=== PATIENT | male | born 1960 | race Caucasian/White ===

== ENCOUNTER 2019-08-10 16:50 | Inpatient (IN) ==
[2019-08-10] MEDS ORDERED: ZOFRAN IV ONE ×2 (17:44→20:07)
[2019-08-10] MEDS: NS 1,000 ML IV ONE ×2 (17:51→18:25)
[2019-08-10 17:53] LABS: BE -18.3 mmoll (-3.0-3.0); BLOOD TYPE ARTERIAL; HCO3-(ACT) 10.6 mmoll (20.0-26.0); O2(CT) 23.4 mL/dL (15.0-23.0); O2HB 95.6 % (95.0-99.0); PCO2(98.6) 25 mmHg (35-45); PO2(98.6) 102 mmHg (60-100); SAMPLE BLOOD; SAO2 99.2 % (95.0-100.0); THB 17.4 g/dL (11.5-17.4)
[2019-08-10 17:55] LABS: ALLEN TEST YES; MODALITY ROOM AIR
[2019-08-10 17:56] LABS: pH(98.6) 7.15 (7.35-7.45)
--- NOTE | 2019-08-10 17:59 | EKG Report ---
Test Performed on : 08/10/2019 5:54:44 PM Test Reason : emboli Blood Pressure : / mmHG Vent. Rate : 091 BPM Atrial Rate : 091 BPM P-R Int : 136 ms QRS Dur : 092 ms QT Int : 388 ms P-R-T Axes : 062 060 062 degrees QTc Int : 477 ms Normal sinus rhythm. Possible Left atrial enlargement Borderline ECG No previous ECGs available Unconfirmed Result
[2019-08-10 18:04] LABS: BASO# 0.05 X1000 (0.0-0.2); BASO% 0.2 % (0.0-0.8); EOS# 0.02 X1000 (0.0-0.7); EOS% 0.1 % (0.0-10.0); HEMATOCRIT 50.3 % (42.0-52.0); HEMOGLOBIN 16.4 g/dL (14.0-18.0); IMM GRAN# 0.13 X1000 (0.0-0.04); IMM GRAN% 0.6 % (0.0-0.5); LYMPH# 1.37 X1000 (1.2-3.4); LYMPH% 6.3 % (20.5-51.1); MCH 29.4 PG (27-31); MCHC 32.6 g/dL (33-37); MCV 90.1 FL (81-99); MONO# 0.82 X1000 (0.11-0.59); MONO% 3.8 % (1.7-9.3); MPV 10.8 FL (7.4-10.4); NEUT# 19.25 X1000 (1.4-6.5); PLT 574 X1000 (130-400); RBC 5.58 XMIL (4.7-6.1); RDW 12.6 % (11.5-14.5); WBC 21.64 X1000 (4.8-10.8)
[2019-08-10 18:05] LABS: ESTIMATED GFR > 60
[2019-08-10] MEDS ORDERED: HUMALOG IV ONE (18:13)
[2019-08-10] MEDS ORDERED: NS 1,000 ML IV ONE ×2 (18:13→18:15)
[2019-08-10] MEDS ORDERED: HUMULIN R 100 UNIT in NS 100 ML IV SCH (18:15)
[2019-08-10] MEDS ORDERED: NS 1,000 ML IV SCH (18:15)
[2019-08-10] MEDS ORDERED: D50W SYRINGE IV PRN ×2 (18:15)
[2019-08-10 18:32] LABS: PHOSPHORUS 6.2 mg/dL (2.7-4.5)
[2019-08-10 18:35] LABS: AGAP 35; ALBUMIN 5.1 g/dL (3.5-5.0); ALKALINE PHOSPHATASE 134 U/L (32-122); AMYLASE 66 U/L (20-200); BUN 27 mg/dL (8-22); CALCIUM 10.2 mg/dL (8.8-10.2); CHLORIDE 88 mmol/L (98-107); CK PROFILE 65 U/L (24-204); COSMO 292; CREATININE 1.1 mg/dL (0.7-1.2); GOT 25 U/L (10-34); GPT 41 U/L (10-44); POTASSIUM 5.5 mmol/L (3.5-5.1); SODIUM 132 mmol/L (136-145); TCO2 9 mmol/L (25-35); TOTAL PROTEIN 8.6 g/dL (6.3-8.3)
[2019-08-10 18:36] LABS: ACETONE SERUM SMALL (NEGATIVE); GLUCOSE 494 mg/dL (70-104)
[2019-08-10] MEDS ORDERED: HUMALOG (PARKWAY) ONE (18:36)
[2019-08-10] MEDS ORDERED: G.I. COCKTAIL PO ONE (18:45)
--- NOTE | 2019-08-10 18:49 | ED EKG INTERP ---
This chart was entered by Jolie Kiser Scribe, acting as scribe for Isiah Sullivan MD. EKG Interpretation - EKG Time of EKG reading by physician:: 17:54 EKG Read and Signed by:: Isiah Sullivan EKG Interpretation (*Must complete 3 of following elements*): Normal (borderline) Rate: 91 (possible LAE ) Rhythm: NSR [place]: normal QRS: normal [place] Interval: normal ST Wave: normal Attestation - Physician/ JOSE LUIS Attestation Patient care was provided by Advanced Practice Provider:: No The physician spent face to face time with patient:: Yes Advanced Practice Provider documentation review:: Supervising physician onsite and consulted in the evaluation and care of this patient. The physician did have a face to face encounter with the patient. This chart was documented by the indicated scribe, (Jolie Kiser Scribe) and accurately reflects the services I performed and decisions made by me, Iisah Sullivan MD, as attested by the provider's signature.
--- NOTE | 2019-08-10 18:50 | PROVIDER DOCUMENTATION ---
This chart was entered by Abby Montiel Scribe, acting as scribe for Isiah Sullivan MD. HPI-General Adult - General Source: patient, family (mother) - History of Present Illness -Gen Adult Nature of Presenting Problems: Pt is a 58 yowm brought into the ED by his mother with c/o vomiting 8 - 10 xs today, weakness, and racing heart rate. Pt's mother states he ate yesterday but has not kept anything down today. Pt states he has a burning sensation in his u pper abdomen. Pt is alert, mildly distressed, and pale in appearance. Location of Pain/Injury: reports: abdomen Pain Radiation: reports: no radiation Quality of Pain: reports: aching, burning Severity: reports: moderate Onset/Duration: reports: abrupt, 24 hours ago Timing: reports: still present, getting worse Context/Activities at Onset: reports: light activity Associated Symptoms: reports: muscle aches, nausea, vomiting, weakness. denies: constipation, diarrhea, fever/chills, syncope Similar Symptoms Previously?: No Recently seen or treated by another doctor?: No <Isiah Sullivna - Last Filed: 08/10/19 18:49> <Fred Carreon - Last Filed: 08/10/19 20:10> - General Chief Complaint: DKA ALERT Stated Complaint: VOMITTING Time Seen by Provider: 08/10/19 17:24 Allergies/Adverse Reactions: Patient Allergies Allergy/AdvReac Type Severity Reaction Status Date / Time No Known Allergies Allergy Verified 08/10/19 17:32 Home Medications: Home Medication List Medication Instructions Recorded Confirmed Last Taken Type Cephalexin [Keflex] 500 mg PO 4XDAY #20 cap 09/12/18 Unknown Rx Citalopram [Celexa] 10 mg PO DAILY 09/12/18 09/12/18 Unknown History Esomeprazole Magnesium 40 mg PO DAILY 09/12/18 09/12/18 Unknown History Ibuprofen [Motrin] 600 mg PO Q6-8H PRN PRN #30 tab 09/12/18 Unknown Rx Insulin Novolog 70/30 [Novolog Mix 20 dose INJ DIRECTED 09/12/18 01/02/19 01/02/19 08:00 History 70/30] Lisinopril 5 mg PO DAILY 09/12/18 09/12/18 Unknown History Pioglitazone HCl/Metformin HCl 1 each PO DIRECTED 09/12/18 09/12/18 Unknown History [Pioglitazone-Metformin 15-500] Cyclobenzaprine [Flexeril] 10 mg PO TID #20 tab 01/02/19 Unknown Rx Gabapentin [Neurontin] 300 mg PO BID #40 cap 01/02/19 Unknown Rx Meloxicam [Mobic] 15 mg PO DAILY #20 tab 01/02/19 Unknown Rx Review of Systems - Adult - REVIEW OF SYSTEMS - ADULT Constitutional: denies: chills, fever Eyes: reports: no symptoms reported Ears, Nose, Mouth & Throat: reports: no symptoms reported Cardiovascular: denies: chest pain, syncope Respiratory: reports: shortness of breath. denies: cough Gastrointestinal: reports: abdominal pain, nausea, poor appetite, vomiting. denies: constipation, diarrhea Genitourinary: reports: no symptoms reported Musculoskeletal: reports: see HPI, muscle weakness Integumentary: reports: no symptoms reported Neurological: denies: dizziness/vertigo, headache/migraines, syncope Psychiatric: reports: no symptoms reported Endocrine: reports: no symptoms reported Hematologic/Lymphatic: reports: no symptoms reported Allergic/Immunologic: reports: no symptoms reported All Other Systems: Reviewed and Negative <Isiah Sullivna - Last Filed: 08/10/19 18:49> Past History - Adult - PAST MEDICAL HISTORY-ADULT Review of Records: reports: Old Records Reviewed, Nursing Assessment Review, Medications Reviewed, Social history reviewed & non-contributory. Major Childhood Illnesses: reports: denies history Cardiovascular: reports: HTN Respiratory: reports: denies history Gastrointestinal: reports: denies history Obstetrical/Gynecological: reports: denies history Genitourinary: reports: denies history Musculoskeletal: reports: denies history Neurological: reports: denies history Endocrine/Immune: reports: Diabetes Other Conditions: reports: denies history - PRIOR SURGERIES/PROCEDURES Surgical/Procedure History: reports: reviewed, not pertinent - IMMUNIZATION STATUS Childhood Immunizations: See Nurse Assessment Flu Vaccine: See Nurse Assessment - FAMILY HISTORY Family History: reviewed, not pertinent - SOCIAL HISTORY Smoking: quit greater than 1 year Substance Use: alcohol Alcohol Use Frequency: occasionally Living Situation: family (mother) <Isiah Sullivan - Last Filed: 08/10/19 18:49> Physical Exam-General - PHYSICAL EXAM-ADULT Initial Vital Signs Reviewed: Yes (HR 100) - CONSTITUTIONAL General Appearance: alert, mild distress, anxious - EYES Eyes: PERRL/EOMI, pink conjunctivae - HEAD, EARS, NOSE, MOUTH & THROAT HENMT: normocephalic/atraumatic, moist mucous membranes, other (tongue coated) - NECK Neck: non-tender, full range of motion, supple, normal inspection - RESPIRATORY Respiratory: chest non-tender, lungs clear, normal breath sounds, no pleuratic chest pain, no respiratory distress, no accessory muscle use - CARDIOVASCULAR Cardiovascular: normal peripheral pulses, no edema, no gallop, no JVD, no murmur , tachycardia, other (tachypneic) - GASTROINTESTINAL (ABDOMEN) Abdominal Exam: normal bowel sounds, non tender, soft - LYMPHATIC Lymphatic: no adenopathy - MUSCULOSKELETAL Back Exam: normal inspection, no CVA tenderness, no vertebral tenderness Extremity: normal range of motion, non-tender, normal gait, normal inspection, no pedal edema, no calf tenderness - SKIN Integumentary: normal turgor, warm/dry, pallor - PSYCHIATRIC Psych/Mental Status: normal thought content, normal thought process, oriented x 3, anxious <Isiah Sullivan - Last Filed: 08/10/19 18:49> Progress - PLAN OF CARE/RESULTS Progress/Plan/Lab Results: Vital Signs - 8 hr 08/10/19 17:10 Temperature 98 F Pulse Rate 100 H Respiratory Rate 18 Blood Pressure 160/87 O2 Sat by Pulse Oximetry 98 Orders Category Date Time Status FSBS [Finger Stick Blood Sugar (ED)] DIRECTED Care 08/10/19 17:15 Active 0.9% Sodium Chloride Inj [Ns] 1,000 ml Med 08/10/19 17:35 Active IV 999 mls/hr Result Diagrams: 08/10/19 17:30 08/10/19 17:30 <Isiah Sullivan - Last Filed: 08/10/19 18:49> - PLAN OF CARE/RESULTS Progress/Plan/Lab Results: Vital Signs - 8 hr 08/10/19 17:10 08/10/19 19:15 08/10/19 20:02 Temperature 98 F Pulse Rate 100 H 107 H 94 H Respiratory Rate 18 16 17 Blood Pressure 160/87 194/86 O2 Sat by Pulse Oximetry 98 99 96 Laboratory Results - last 24 hr 08/10/19 08/10/19 08/10/19 17:30 17:30 17:30 WBC 21.64 H RBC 5.58 Hgb 16.4 Hct 50.3 MCV 90.1 MCH 29.4 MCHC 32.6 L RDW Std Deviation 12.6 Plt Count 574 H MPV 10.8 H Immature Gran % (Auto) 0.6 H Neut % (Auto) 89.0 H Lymph % (Auto) 6.3 L [place] % (Auto) 3.8 Eos % (Auto) 0.1 Baso % (Auto) 0.2 Immature Gran # (Auto) 0.13 H Neut # (Auto) 19.25 H Lymph # (Auto) 1.37 [place] # (Auto) 0.82 H Eos # (Auto) 0.02 Baso # (Auto) 0.05 Segmented Neutrophils Not Reportable Specimen Type Sample Site pH pCO2 pO2 HCO3 Base Excess Oxyhemoglobin ABG O2 Sat (Calculated) ABG O2 Saturation ABG Carboxyhemoglobin ABG Methemoglobin [place] Test A-a O2 Difference Total Hemoglobin Lactate Blood Gas Modality FiO2 % Sodium 132 L Potassium 5.5 H Chloride 88 L Carbon Dioxide 9 L Anion Gap 35 BUN 27 H Creatinine 1.1 Estimated GFR/1.73 m2 > 60 BUN/Creatinine Ratio 25 Glucose 494 H* POC Glucose Calculated Osmolality 292 Calcium 10.2 Phosphorus Magnesium Total Bilirubin 0.90 AST 25 ALT 41 Alkaline Phosphatase 134 H Creatine Kinase 65 Troponin T High Sens Total Protein 8.6 H Albumin 5.1 H Globulin 4.0 Albumin/Globulin Ratio 1.0 Amylase 66 Lipase 18 Urine Source Urine Color Urine Turbidity Urine pH Ur Specific [place] Urine Protein Ur Glucose (Stick) Ur Ketones (Stick) Urine Blood Urine Nitrite Urine Bilirubin Urobilinogen Dipstick Urine Leukocytes Urine WBC (Auto) Urine RBC (Auto) U Epithel Cells (Auto) Urine Bacteria (Auto) Urine Opiates Screen Ur Oxycodone Screen Urine Methadone Screen U Propoxyphene Qual Ur Barbituates Screen Ur Tricyclics Screen Ur Phencyclidine Scrn Ur Amphetamines Screen U Methamphetamines Scrn U Benzodiazepines Scrn Urine Cocaine Screen U Cannabinoids Screen Acetone Level SMALL A 08/10/19 08/10/19 08/10/19 17:30 17:30 17:40 WBC RBC Hgb Hct MCV MCH MCHC RDW Std Deviation Plt Count MPV Immature Gran % (Auto) Neut % (Auto) Lymph % (Auto) [place] % (Auto) Eos % (Auto) Baso % (Auto) Immature Gran # (Auto) Neut # (Auto) Lymph # (Auto) [place] # (Auto) Eos # (Auto) Baso # (Auto) Segmented Neutrophils Specimen Type ARTERIAL Sample Site R RADIAL pH 7.15 L* pCO2 25 L pO2 102 H HCO3 10.6 L Base Excess -18.3 L Oxyhemoglobin 95.6 ABG O2 Sat (Calculated) 23.4 H ABG O2 Saturation 99.2 ABG Carboxyhemoglobin 2.50 ABG Methemoglobin 1.0 [place] Test YES A-a O2 Difference 16.0 Total Hemoglobin 17.4 Lactate 2.80 H Blood Gas Modality ROOM AIR FiO2 % 21.0 Sodium Potassium Chloride Carbon Dioxide Anion Gap BUN Creatinine Estimated GFR/1.73 m2 BUN/Creatinine Ratio Glucose POC Glucose Calculated Osmolality Calcium Phosphorus 6.2 H Magnesium 2.0 Total Bilirubin AST ALT Alkaline Phosphatase Creatine Kinase Troponin T High Sens 10 Total Protein Albumin Globulin Albumin/Globulin Ratio Amylase Lipase Urine Source Urine Color Urine Turbidity Urine pH Ur Specific [place] Urine Protein Ur Glucose (Stick) Ur Ketones (Stick) Urine Blood Urine Nitrite Urine Bilirubin Urobilinogen Dipstick Urine Leukocytes Urine WBC (Auto) Urine RBC (Auto) U Epithel Cells (Auto) Urine Bacteria (Auto) Urine Opiates Screen Ur Oxycodone Screen Urine Methadone Screen U Propoxyphene Qual Ur Barbituates Screen Ur Tricyclics Screen Ur Phencyclidine Scrn Ur Amphetamines Screen U Methamphetamines Scrn U Benzodiazepines Scrn Urine Cocaine Screen U Cannabinoids Screen Acetone Level 08/10/19 08/10/19 08/10/19 19:04 19:24 19:24 WBC RBC Hgb Hct MCV MCH MCHC RDW Std Deviation Plt Count MPV Immature Gran % (Auto) Neut % (Auto) Lymph % (Auto) [place] % (Auto) Eos % (Auto) Baso % (Auto) Immature Gran # (Auto) Neut # (Auto) Lymph # (Auto) [place] # (Auto) Eos # (Auto) Baso # (Auto) Segmented Neutrophils Specimen Type Sample Site pH pCO2 pO2 HCO3 Base Excess Oxyhemoglobin ABG O2 Sat (Calculated) ABG O2 Saturation ABG Carboxyhemoglobin ABG Methemoglobin [place] Test A-a O2 Difference Total Hemoglobin Lactate Blood Gas Modality FiO2 % Sodium Potassium Chloride Carbon Dioxide Anion Gap BUN Creatinine Estimated GFR/1.73 m2 BUN/Creatinine Ratio Glucose POC Glucose 320 H Calculated Osmolality Calcium Phosphorus Magnesium Total Bilirubin AST ALT Alkaline Phosphatase Creatine Kinase Troponin T High Sens Total Protein Albumin Globulin Albumin/Globulin Ratio Amylase Lipase Urine Source CLEAN CATCH Urine Color YELLOW Urine Turbidity CLEAR Urine pH 5.5 Ur Specific [place] 1.023 Urine Protein 30 A Ur Glucose (Stick) >1000 A Ur Ketones (Stick) >150 A Urine Blood NEGATIVE Urine Nitrite NEGATIVE Urine Bilirubin NEGATIVE Urobilinogen Dipstick NORMAL Urine Leukocytes NEGATIVE Urine WBC (Auto) <10 Urine RBC (Auto) <10 U Epithel Cells (Auto) <10 Urine Bacteria (Auto) NEGATIVE Urine Opiates Screen NONE DETECTED Ur Oxycodone Screen NONE DETECTED Urine Methadone Screen NONE DETECTED U Propoxyphene Qual NONE DETECTED Ur Barbituates Screen NONE DETECTED Ur Tricyclics Screen NONE DETECTED Ur Phencyclidine Scrn NONE DETECTED Ur Amphetamines Screen NONE DETECTED U Methamphetamines Scrn NONE DETECTED U Benzodiazepines Scrn NONE DETECTED Urine Cocaine Screen NONE DETECTED U Cannabinoids Screen NONE DETECTED Acetone Level Orders Category Date Time Status Cardiac Monitoring DIRECTED Care 08/10/19 18:15 Active FSBS [Finger Stick Blood Sugar (ED)] DIRECTED Care 08/10/19 17:15 Active FSBS/Accucheck Result Q15M Care 08/10/19 18:18 Active FSBS/Accucheck Result Q1H Care 08/10/19 18:15 Active Hypoglycemia/FSBS <50 or Range of 50-70 PRN Care 08/10/19 18:18 Active Notify Physician ORDERED Care 08/10/19 18:18 Active Saline Loc DIRECTED Care 08/10/19 18:18 Active Saline Loc NOW Care 08/10/19 18:15 Active Vital Signs Order Q1H Care 08/10/19 18:15 Active ABG [RESP] Routine Lab 08/10/19 17:40 Completed ACETONE SERUM [CHEM] Stat Lab 08/10/19 17:30 Completed AMYLASE [CHEM] Stat Lab 08/10/19 17:30 Completed CBC WITH DIFF [HEME] Stat Lab 08/10/19 17:30 Completed CK PROFILE [SP CHEM] Stat Lab 08/10/19 17:30 Completed COMPREHENSIVE METABOLIC PANEL [CHEM] Stat Lab 08/10/19 17:30 Completed LIPASE [CHEM] Stat Lab 08/10/19 17:30 Completed MAGNESIUM [CHEM] Stat Lab 08/10/19 17:30 Completed PHOSPHORUS [CHEM] Stat Lab 08/10/19 17:30 Completed TROPONIN T HIGH SENSITIVITY Stat Lab 08/10/19 17:30 Completed UA [URINALYSIS W/POSS RFLX CULT] [URINALYSIS] Stat Lab 08/10/19 19:24 Completed URINE DRUG SCREEN PL Stat Lab 08/10/19 19:24 Completed 0.9% Sodium Chloride Inj [Ns] 1,000 ml Med 08/10/19 18:15 Discontinued IV 500 mls/hr 0.9% Sodium Chloride Inj [Ns] 1,000 ml Med 08/10/19 17:35 Discontinued IV 999 mls/hr 0.9% Sodium Chloride Inj [Ns] 1,000 ml Med 08/10/19 18:13 Discontinued IV 999 mls/hr 0.9% Sodium Chloride Inj [Ns] 1,000 ml Med 08/10/19 18:15 Discontinued IV 999 mls/hr 0.9% Sodium Chloride Inj [Ns] 100 ml Med 08/10/19 18:15 Discontinued Insulin Human Regular [Humulin R] 100 unit IV Per Protocol mls/hr 0.9% Sodium Chloride Inj [Ns] 100 ml Med 08/10/19 19:21 Discontinued .ROUTE As directed Dextrose 50% Syringe [D50w Syringe] Med 08/10/19 18:15 Discontinued 25 ml IV PRN PRN Dextrose 50% Syringe [D50w Syringe] Med 08/10/19 18:15 Discontinued 50 ml IV PRN PRN Insulin Lispro ([place]) [Humalog ([place])] Med 08/10/19 18:36 Discontinued 10 units .ROUTE .STK-MED ONE Insulin Lispro [Humalog] Med 08/10/19 18:13 Discontinued 10 units IV NOW ONE Lido/[place] Alk/Al&mg Hydrox [G.i. Cocktail] Med 08/10/19 18:45 Discontinued 30 ml PO NOW ONE Morphine Med 08/10/19 20:07 Discontinued 2 mg IV NOW ONE Ondansetron [Zofran] Med 08/10/19 20:07 Discontinued 4 mg IV NOW ONE Ondansetron [Zofran] Med 08/10/19 17:44 Discontinued 4 mg IV STAT ONE EKG [EKG] Routine Ther 08/10/19 17:45 Draft Transfer/Admit Order [TRANSFER] Routine Transfer 08/10/19 19:19 Completed Result Diagrams: 08/10/19 17:30 08/10/19 17:30 - REASSESSMENT Reassessment #1 Time Reassessed: 20:08 Status: improving (This patient was checked out to me at shift change by Dr. Sullivan, awaiting labs, however, he already spoke with Dr. Liriano who agreed to admit the patient and [facility] [place] [facility] Patient requested some pain meds for abdominal pain, so I ordered morphine/zofran) <Fred Carreon - Last Filed: 08/10/19 20:10> Departure <Isiah Sullivan - Last Filed: 08/10/19 18:49> - Departure Date of Disposition Decision: 08/10/19 Time of Disposition Decision: 20:09 Certified Medical Emergency: Emergent - Critical Care Note This patient required my direct & personal management of CC.: Yes Total Time (mins): 35 Critical Care Statement: This patient required my direct personal management to treat or rule out processes, the absence of which, could potentiallly result in sudden, clinically significant life or limb threatening deterioration. <Fred Carreon - Last Filed: 08/10/19 20:10> - Departure DIAGNOSIS: Diabetic ketoacidosis associated with type 2 diabetes mellitus Qualifiers: Diabetes mellitus complication detail: without coma Qualified Code(s): E11.10 - Type 2 diabetes mellitus with ketoacidosis without coma Abdominal pain Qualifiers: Abdominal location: generalized Qualified Code(s): R10.84 - Generalized abdominal pain Disposition: ADMITTED INPATIENT 09 Condition: Critical Referrals and Follow-Ups: None,PCP [Primary Care Provider] - Attestation - Physician/ JOSE LUIS Attestation Patient care was provided by Advanced Practice Provider:: No The physician spent face to face time with patient:: Yes Advanced Practice Provider documentation review:: Supervising physician onsite and consulted in the evaluation and care of this patient. The physician did have a face to face encounter with the patient. <Isiah Sullivan - Last Filed: 08/10/19 18:49> - Physician/ JOSE LUIS Attestation Patient care was provided by Advanced Practice Provider:: No The physician spent face to face time with patient:: Yes Advanced Practice Provider documentation review:: Supervising physician onsite and consulted in the evaluation and care of this patient. The physician did have a face to face encounter with the patient. <Fred Carreon - Last Filed: 08/10/19 20:10> This chart was documented by the indicated scribe, (Abby Montiel, Scribe) and accurately reflects the services I performed and decisions made by me, Isiah Sullivan MD, as attested by the provider's signature.
[2019-08-10] MEDS ORDERED: NS 100 ML ONE (19:21)
[2019-08-10 19:28] LABS: URINE SOURCE CLEAN CATCH
[2019-08-10 19:30] LABS: BILIRUBIN URINE NEGATIVE (NEGATIVE); BLOOD URINE NEGATIVE (NEGATIVE); COLOR YELLOW; GLUCOSE URINE >1000 mg/dL (NEGATIVE); KETONE URINE >150 mg/dL (NEGATIVE); LEUKOCYTES URINE NEGATIVE (NEGATIVE); NITRITE URINE NEGATIVE (NEGATIVE); PH URINE 5.5; PROTEIN URINE 30 mg/dL (NEGATIVE); SP GRAVITY URINE 1.023; TURBIDITY URINE CLEAR (CLEAR); UROBILINOGEN URINE NORMAL (NORMAL)
[2019-08-10 19:32] LABS: UR EPITHELIAL CELLS <10 /HPF (<10); URINE BACTERIA NEGATIVE /HPF; URINE RBC <10 /HPF (<10); URINE WBC <10 /HPF (<10)
[2019-08-10 19:47] LABS: UR AMPHETAMINES QUAL NONE DETECTED (NONE DETECT); UR BARBITUATES QUAL NONE DETECTED (NONE DETECT); UR BENZODIAZEPIN QUAL NONE DETECTED (NONE DETECT); UR CANNABINOIDS QUAL NONE DETECTED (NONE DETECT); UR COCAINE QUAL NONE DETECTED (NONE DETECT); UR METHADONE QUAL NONE DETECTED (NONE DETECT); UR METHAMPHETAMINE QUAL NONE DETECTED (NONE DETECT); UR OPIATES QUAL NONE DETECTED (NONE DETECT); UR OXYCODONE QUAL NONE DETECTED (NONE DETECT); UR PCP QUAL NONE DETECTED (NONE DETECT); UR PROPOXYPHENE QUAL NONE DETECTED (NONE DETECT); UR TCA QUAL NONE DETECTED (NONE DETECT)
[2019-08-10] MEDS ORDERED: MORPHINE IV ONE (20:07)
[2019-08-11] MEDS ORDERED: D50W SYRINGE IV PRN ×4 (00:37→04:28)
[2019-08-11] MEDS ORDERED: POTASSIUM CHLORIDE 40 MEQ in D5 NS 1,000 ML IV PRN (00:44)
[2019-08-11] MEDS ORDERED: NS + KCL 20 MEQ 1,000 ML IV SCH ×2 (00:45→03:00)
[2019-08-11] MEDS ORDERED: HUMULIN R 100 UNIT in NS 100 ML IV SCH ×6 (00:45→04:30)
[2019-08-11] MEDS ORDERED: ZOSYN 3.375 GM in NS 50 ML IV SCH ×2 (01:00→07:00)
[2019-08-11] MEDS ORDERED: VANCOMYCIN IV PER PHARMACY MISC SCH (01:00)
[2019-08-11 02:15] LABS: AGAP 16; BUN 23 mg/dL (8-22); CALCIUM 8.9 mg/dL (8.8-10.2); CHLORIDE 102 mmol/L (98-107); COSMO 282; CREATININE 0.9 mg/dL (0.7-1.2); ESTIMATED GFR > 60; GLUCOSE 252 mg/dL (70-104); PHOSPHORUS 2.4 mg/dL (2.7-4.5); POTASSIUM 5.2 mmol/L (3.5-5.1); SODIUM 135 mmol/L (136-145); TCO2 17 mmol/L (25-35)
[2019-08-11] MEDS ORDERED: VANCOMYCIN 1 GM/NS 1 GM/250 ML IVPB IV SCH (03:00)
[2019-08-11] MEDS ORDERED: VANCOMYCIN 2,400 MG in NS 500 ML IV ONE (04:00)
[2019-08-11] MEDS ORDERED: MAGNESIUM SULFATE 2 GM/S.W.I. 2 GM/50 ML IVPB IV PRN (04:28)
[2019-08-11] MEDS ORDERED: D5 NS 1,000 ML IV PRN (04:28)
[2019-08-11] MEDS ORDERED: SODIUM PHOSPHATE 30 MMOL in D5W 250 ML IV PRN (04:28)
[2019-08-11] MEDS ORDERED: POTASSIUM CHLORIDE 20% LIQUID PO PRN (04:28)
[2019-08-11] MEDS ORDERED: POTASSIUM CHLORIDE 40 MEQ/SWI 40 MEQ/100 ML IVPB IV PRN (04:28)
[2019-08-11] MEDS ORDERED: POTASSIUM CHLORIDE 20 MEQ/SWI 20 MEQ/100 ML IVPB IV PRN (04:28)
[2019-08-11] MEDS ORDERED: NS 1,000 ML IV SCH (04:30)
[2019-08-11 04:55] LABS: ALLEN TEST YES; BE -6.3 mmoll (-3.0-3.0); BLOOD TYPE ARTERIAL; METHB 1.4 % (0.0-1.5); O2(CT) 21.1 mL/dL (15.0-23.0); PCO2(98.6) 33 mmHg (35-45); PO2(98.6) 135 mmHg (60-100); SAMPLE BLOOD; SAO2 99.4 % (95.0-100.0); THB 15.5 g/dL (11.5-17.4); pH(98.6) 7.35 (7.35-7.45)
[2019-08-11 04:56] LABS: MODALITY ROOM AIR
[2019-08-11 05:47] LABS: AGAP 13; BUN 22 mg/dL (8-22); CALCIUM 8.9 mg/dL (8.8-10.2); CHLORIDE 105 mmol/L (98-107); COSMO 278; ESTIMATED GFR > 60; GLUCOSE 213 mg/dL (70-104); PHOSPHORUS 1.9 mg/dL (2.7-4.5); POTASSIUM 4.4 mmol/L (3.5-5.1); SODIUM 134 mmol/L (136-145); TCO2 16 mmol/L (25-35)
--- NOTE | 2019-08-11 06:18 | HISTORY AND PHYSICAL ---
CHIEF COMPLAINT: The patient's chief complaint is that of abdominal discomfort with nausea and vomiting. HISTORY OF PRESENT ILLNESS: Mr. Yogesh Cox is a 58-year-old male who has a history of diabetes mellitus, and presents to the hospital because of a burning discomfort which he noticed in his epigastric area along with nausea and also vomiting. The patient denies any diarrhea or constipation. On presenting to the emergency room, he was found to have raised blood sugar of 494. CO2 level of 9, anion gap of 35, and potassium of 5.5. His pH was 7.15. The patient was noted to have a small amount of acetone. The patient was diagnosed as having diabetic ketoacidosis, and started on intravenous fluids as well as intravenous insulin. The patient initially presented to [facility], and has now been referred to [facility] ICU for further management. PAST MEDICAL HISTORY: Diabetes mellitus. SOCIAL HISTORY: No cigarette smoking. Drinks alcohol and uses marijuana. PAST SURGICAL HISTORY: The patient has had one right shoulder surgery, 2 left shoulder surgeries, three right knee surgeries, and one right thumb surgery. He has also had adenoidectomy as well as tonsillectomy. FAMILY HISTORY: Positive for diabetes mellitus. ALLERGIES: No known drug allergies. MEDICATIONS: His medications include the followin. Cephalexin. 2. Citalopram. 3. Cyclobenzaprine. 4. Omeprazole. 5. Gabapentin. 6. Ibuprofen. 7. NovoLog 70/30. 8. Lisinopril 5 mg. 9. Meloxicam 7.5 mg. REVIEW OF SYSTEMS: Constitutional: No fever. 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 Eyes: No blurred vision. ENT: No hearing problems. Cardiovascular: No chest pain. Respiratory: No cough. : No dysuria. Musculoskeletal: He has joint pain. Dermatology: No skin lesions. Hematology: No bleeding problems. Psychiatric: No anxiety or depression. Endocrine: No thyroid disease. PHYSICAL EXAMINATION: VITAL SIGNS: Temperature 98.4 degrees, pulse 89, respiratory rate 20, blood pressure 160/90, and oxygen saturation is 98%. HEENT: Atraumatic and normocephalic. He is anicteric. Extraocular movements intact. No oral lesions noted. NECK: No lymphadenopathy or thyromegaly. CARDIOVASCULAR: S1, S2. RESPIRATORY: There is evidence of good entry bilaterally. ABDOMEN: Soft. Nontender. No masses felt. EXTREMITIES: No evidence of edema. CENTRAL NERVOUS SYSTEM: No obvious focal deficit noted. LABORATORY DATA: WBC is 21.64, hematocrit 50.3 with a platelet count of 574,000. ABG 7.15/25/102/99.2%. Sodium 132, potassium 5.5, chloride 88, bicarb is 9, BUN 27, creatinine is 1.1, and glucose 194. Alkaline phosphatase 134. Lipase 18. AST 25 and ALT 41. Chest x-ray with no significant infiltrate noted. This is a preliminary report. ASSESSMENT AND PLAN: 1. Diabetic ketoacidosis. The patient will be placed on intravenous fluids as well as intravenous insulin. We will follow up on the patient's blood sugar levels, anion gap, CO2 level, as well as a pH. Once the patient is out of diabetic ketoacidosis, the patient will be transitioned to subcutaneous insulin. Will need to check the patient's A1c level. The patient will require diabetic education as well. 2. Leukocytosis. Etiology not clear. Suspect infection. Will obtain cultures, and place the patient on empiric antibiotics. 3. Deep venous thrombosis prophylaxis. Sequential compression devices. 4. Gastrointestinal prophylaxis. Proton pump inhibitor. cc: Dillon Shearer MD MTDD
[2019-08-11] MEDS ORDERED: PRILOSEC PO SCH (07:00)
[2019-08-11] MEDS: POTASSIUM CHLORIDE 10% LIQUID PO PRN ×2 (07:26→10:30)
--- NOTE | 2019-08-11 08:08 | Diag Imaging Result Doc PS360 ---
EXAM: CHEST-1 VIEW 08/11/2019 HISTORY: R/O pneumonia TECHNIQUE: AP chest at 0103 COMMENT: There is a granuloma in the right lower lobe. There is no evidence of acute cardiac or pulmonary disease. No previous studies are available for comparison. IMPRESSION: No evidence of acute disease. Electronically signed by Pawan Barrera 08/11/2019 8:06 AM
[2019-08-11] MEDS ORDERED: ZOFRAN IV PRN (09:28)
[2019-08-11 10:02] LABS: AGAP 12; BUN 21 mg/dL (8-22); CHLORIDE 104 mmol/L (98-107); COSMO 279; CREATININE 0.9 mg/dL (0.7-1.2); ESTIMATED GFR > 60; GLUCOSE 208 mg/dL (70-104); MAGNESIUM 1.8 mg/dL (1.5-2.7); PHOSPHORUS 1.5 mg/dL (2.7-4.5); POTASSIUM 4.5 mmol/L (3.5-5.1); SODIUM 135 mmol/L (136-145); TCO2 19 mmol/L (25-35)
[2019-08-11] MEDS ORDERED: POTASSIUM PHOSPHATE 40 MEQ in NS 250 ML IV ONE (11:52)
[2019-08-11] MEDS ORDERED: SODIUM CHLORIDE 0.9% INJ SCH (12:30)
--- NOTE | 2019-08-11 12:54 | PROGRESS NOTE ---
DATE: 08/11/2019 SUBJECTIVE: Patient has no major complaints. OBJECTIVE: Blood pressure 151/87, heart rate 71, respiratory rate 16, and temperature 97.7 degrees, 97% on room air. Cardiovascular: Regular rate and rhythm. Pulmonary: Bilateral breath sounds clear to auscultation. GI: Soft, nontender. His bicarb is 19. His gap is 12. ASSESSMENT AND PLAN: 1. We will switch him to Lantus and switch to insulin protocol. Then we will continue to follow. 2. Gastrointestinal. He is complaining of severe gastritis and epigastric pain. I am questioning if he has gastroparesis. We will get that study done and get a gastrointestinal evaluation. Continue his proton pump inhibitor and follow. He has not been really able to tolerate very much oral intake. 3. Disposition. His gap has closed. He is tolerating oral intake. I anticipate discharge soon. cc: Roger Velasquez MD
[2019-08-11 13:36] LABS: AGAP 11; BUN 19 mg/dL (8-22); CHLORIDE 104 mmol/L (98-107); COSMO 281; CREATININE 0.9 mg/dL (0.7-1.2); ESTIMATED GFR > 60; GLUCOSE 222 mg/dL (70-104); POTASSIUM 4.5 mmol/L (3.5-5.1); SODIUM 136 mmol/L (136-145); TCO2 21 mmol/L (25-35)
[2019-08-11] MEDS: PROTONIX IV SCH (13:36)
[2019-08-11] MEDS ORDERED: LANTUS INSULIN SUBQ ONE (13:51)
[2019-08-11] MEDS: HUMULIN R SUBQ SCH ×3 (14:15→21:19)
[2019-08-11] MEDS: NS 1,000 ML IV SCH (16:05)
[2019-08-11] MEDS ORDERED: VANCOMYCIN 1,750 MG in NS 250 ML IV SCH (22:00)
[2019-08-12] MEDS: PROTONIX IV SCH
[2019-08-12] MEDS: NS 1,000 ML IV SCH ×3 (01:55→21:26)
[2019-08-12] MEDS: HUMULIN R SUBQ SCH ×5 (01:56→20:42)
[2019-08-12 06:30] LABS: BASO# 0.05 X1000 (0.0-0.2); BASO% 0.4 % (0.0-0.8); EOS# 0.04 X1000 (0.0-0.7); EOS% 0.4 % (0.0-10.0); HEMATOCRIT 39.5 % (42.0-52.0); HEMOGLOBIN 13.3 g/dL (14.0-18.0); IMM GRAN# 0.02 X1000 (0.0-0.04); IMM GRAN% 0.2 % (0.0-0.5); LYMPH# 1.49 X1000 (1.2-3.4); LYMPH% 13.1 % (20.5-51.1); MCH 30.3 PG (27-31); MCHC 33.7 g/dL (33-37); MONO# 1.03 X1000 (0.11-0.59); MONO% 9.1 % (1.7-9.3); MPV 10.6 FL (7.4-10.4); NEUT# 8.71 X1000 (1.4-6.5); NEUT% 76.8 % (42.2-75.2); PLT 319 X1000 (130-400); RBC 4.39 XMIL (4.7-6.1); RDW 12.5 % (11.5-14.5); WBC 11.34 X1000 (4.8-10.8)
[2019-08-12 06:44] LABS: AGAP 13; BUN 10 mg/dL (8-22); CALCIUM 8.5 mg/dL (8.8-10.2); CHLORIDE 101 mmol/L (98-107); COSMO 277; CREATININE 0.7 mg/dL (0.7-1.2); ESTIMATED GFR > 60; GLUCOSE 236 mg/dL (70-104); SODIUM 135 mmol/L (136-145); TCO2 21 mmol/L (25-35)
[2019-08-12 06:50] LABS: HEMOGLOBIN A1C 10.5 % (4.8-6.0)
[2019-08-12] MEDS ORDERED: PEPCID PO ONE (12:20)
[2019-08-12] MEDS ORDERED: PRILOSEC PO ONE (12:21)
--- NOTE | 2019-08-12 12:42 | PROGRESS NOTE ---
DATE: 08/12/2019 SUBJECTIVE: Patient has no major complaints except he is hungry, wants to eat. OBJECTIVE: Vital signs: Blood pressure is 172/86, heart rate 73, respiratory rate of 14, temperature 97.5 degrees, 95% on room air. Cardiovascular: Regular rate and rhythm. Pulmonary: Bilateral breath sounds clear to auscultation. Gastrointestinal: Soft, nontender, nondistended. Bowel sounds were positive. Extremity: No clubbing or cyanosis. Lymphatic: No peripheral edema. Neurological: Nonfocal. LABORATORY DATA: Today, white count 11, hemoglobin and hematocrit 13 and 39, platelets of 319,000. Sodium is 135, glucose 277. A1c of 10.5. PROBLEM LIST: 1. Diabetic ketoacidosis, which has resolved. He is on Lantus and sliding scale. We will switch him back to his home regimen once we can establish exactly what that is. 2. Gastritis, peptic ulcer disease. He is still having a lot of abdominal cramping. I am not sure if this is gastroparesis. He is getting an emptying study today. I have consulted GI. We will continue PPI, but despite PPI and H2 makayla, he is still having significant dyspepsia. DISPOSITION: Probably should be able to go home soon. GI to evaluate about endoscopy inpatient versus outpatient, and we will continue to follow. cc: Roger Velasquez MD
[2019-08-12] MEDS: PRINIVIL PO SCH (14:44)
[2019-08-12] MEDS: LANTUS INSULIN SUBQ SCH (14:44)
--- NOTE | 2019-08-12 15:01 | Diag Imaging Result Doc PS360 ---
EXAM: GASTRIC EMPTYING HISTORY: dysphagia/reflux TECHNIQUE: Nuclear medicine gastric emptying exam COMPARISON: None. FINDINGS: 530 uCi of colloid taken with oatmeal. Imaging for two hours performed. T1 half is calculated to be 58 minutes. IMPRESSION: Normal gastric emptying Electronically signed by Rad Zabala 08/12/2019 2:59 PM
[2019-08-12] MEDS: PEPCID PO SCH (20:42)
[2019-08-13] MEDS: HUMULIN R SUBQ SCH ×4 (06:08→21:27)
[2019-08-13 06:27] LABS: BASO# 0.05 X1000 (0.0-0.2); BASO% 0.7 % (0.0-0.8); EOS# 0.06 X1000 (0.0-0.7); EOS% 0.8 % (0.0-10.0); HEMATOCRIT 40.1 % (42.0-52.0); HEMOGLOBIN 13.4 g/dL (14.0-18.0); LYMPH# 1.78 X1000 (1.2-3.4); LYMPH% 24.4 % (20.5-51.1); MCHC 33.4 g/dL (33-37); MCV 89.9 FL (81-99); MONO# 0.95 X1000 (0.11-0.59); MPV 10.3 FL (7.4-10.4); NEUT# 4.45 X1000 (1.4-6.5); NEUT% 61.1 % (42.2-75.2); PLT 294 X1000 (130-400); RBC 4.46 XMIL (4.7-6.1); RDW 12.4 % (11.5-14.5); WBC 7.29 X1000 (4.8-10.8)
[2019-08-13] MEDS: PRILOSEC PO SCH (06:28)
[2019-08-13 06:32] LABS: AGAP 12; BUN 9 mg/dL (8-22); CALCIUM 8.4 mg/dL (8.8-10.2); CHLORIDE 101 mmol/L (98-107); COSMO 277; CREATININE 0.6 mg/dL (0.7-1.2); ESTIMATED GFR > 60; GLUCOSE 176 mg/dL (70-104); POTASSIUM 3.4 mmol/L (3.5-5.1); SODIUM 137 mmol/L (136-145); TCO2 24 mmol/L (25-35)
[2019-08-13] MEDS: NS 1,000 ML IV SCH ×3 (07:51→19:35)
[2019-08-13] MEDS: PRINIVIL PO SCH (08:38)
[2019-08-13] MEDS: PEPCID PO SCH ×2 (08:39→21:15)
[2019-08-13] MEDS: LANTUS INSULIN SUBQ SCH (08:39)
[2019-08-13] MEDS ORDERED: TYLENOL PO PRN (13:42)
[2019-08-13] MEDS ORDERED: PEPCID PO SCH (13:45)
[2019-08-13] MEDS ORDERED: NOVOLOG MIX 70/30 SUBQ SCH ×2 (16:00→21:00)
[2019-08-13] MEDS: NOVOLOG MIX 70/30 SUBQ SCH (17:33)
--- NOTE | 2019-08-13 18:10 | PROGRESS NOTE ---
DATE: 08/13/2019 SUBJECTIVE: Patient has no major complaints except his abdomen. He is just having a lot of abdominal discomfort. OBJECTIVE: Blood pressure 148/89, heart rate 75, respiratory rate 20, and temperature 98.5 degrees.Cardiovascular: Regular rate and rhythm. Pulmonary: Bilateral breath sounds clear to auscultation. GI: Soft, nontender, and nondistended. Bowel sounds are positive. LABORATORY: White count is 7, hemoglobin and hematocrit 13 and 40, and platelets 294,000. Basic was normal. Potassium 3.4. Sugars are still in the 200 range so not quite well controlled. ASSESSMENT AND PLAN: 1. DKA, which has resolved. He is on 70/30, but still not quite controlled. I am going to titrate up on that a bit. 2. Persistent gastritis and irritation in his stomach. Reflux. I am concerned about candidal esophagitis. I think he probably needs endoscopy. He is still not taking p.o. very well so we are still waiting on a GI consult. We had put it in on the , and I have consulted Dr. Vaelnte again. We will continue to follow. cc: Roger Velasquez MD
[2019-08-13] MEDS ORDERED: FLEXERIL PO ONE (21:01)
[2019-08-13] MEDS: ACTOS PO SCH (21:15)
[2019-08-13] MEDS: GLUCOPHAGE PO SCH (21:15)
[2019-08-13] MEDS: NORCO-7.5 PO PRN (21:28)
[2019-08-14] MEDS: NS 1,000 ML IV SCH ×2 (05:05→14:51)
[2019-08-14] MEDS: PRILOSEC PO SCH (06:27)
[2019-08-14] MEDS: NOVOLOG MIX 70/30 SUBQ SCH ×3 (06:27→17:14)
[2019-08-14] MEDS: HUMULIN R SUBQ SCH ×3 (07:06→17:09)
[2019-08-14 07:38] LABS: BASO# 0.27 X1000 (0.0-0.2); BASO% 3.2 % (0.0-0.8); EOS# 0.13 X1000 (0.0-0.7); EOS% 1.5 % (0.0-10.0); HEMATOCRIT 40.2 % (42.0-52.0); HEMOGLOBIN 13.5 g/dL (14.0-18.0); LYMPH# 1.96 X1000 (1.2-3.4); LYMPH% 23.1 % (20.5-51.1); MCH 30.3 PG (27-31); MCHC 33.6 g/dL (33-37); MCV 90.3 FL (81-99); MONO# 1.13 X1000 (0.11-0.59); MONO% 13.3 % (1.7-9.3); MPV 10.7 FL (7.4-10.4); NEUT% 58.9 % (42.2-75.2); PLT 295 X1000 (130-400); RBC 4.45 XMIL (4.7-6.1); RDW 12.4 % (11.5-14.5); WBC 8.49 X1000 (4.8-10.8)
[2019-08-14 07:57] LABS: AGAP 8; BUN 10 mg/dL (8-22); CHLORIDE 101 mmol/L (98-107); COSMO 277; CREATININE 0.7 mg/dL (0.7-1.2); ESTIMATED GFR > 60; GLUCOSE 132 mg/dL (70-104); POTASSIUM 3.2 mmol/L (3.5-5.1); SODIUM 138 mmol/L (136-145); TCO2 29 mmol/L (25-35)
[2019-08-14] MEDS: ACTOS PO SCH (08:55)
[2019-08-14] MEDS: NORCO-7.5 PO PRN (08:55)
[2019-08-14] MEDS: GLUCOPHAGE PO SCH (08:55)
[2019-08-14] MEDS: PRINIVIL PO SCH (08:56)
[2019-08-14] MEDS: PEPCID PO SCH (08:56)
[2019-08-14] MEDS ORDERED: CELEXA PO SCH (09:00)
[2019-08-14] MEDS ORDERED: FLEXERIL PO PRN (11:35)
[2019-08-14] MEDS ORDERED: KLOR-CON PO ONE (11:38)
[2019-08-14] MEDS ORDERED: LIDODERM TOP SCH (11:45)
[2019-08-14] MEDS: MYCOSTATIN SUSP PO SCH ×3 (13:14→17:13)
[2019-08-14] MEDS ORDERED: CARAFATE LIQUID PO SCH (14:00)
[2019-08-14 15:42] VITALS: BP 136/71
--- NOTE | 2019-08-14 18:03 | DISCHARGE SUMMARY ---
ADMISSION DATE: 08/10/2019 DISCHARGE DATE: 08/14/2019 DISCHARGE DIAGNOSES: 1. Early-onset diabetic ketoacidosis did require intravenous insulin infusion. 2. Gastritis of the stomach, although his nausea and vomiting have resolved. HOSPITAL COURSE: In any case, this is a 58-year-old male. He came in for evaluation of type 2 diabetes. He had initial low pH, gap of 35, CO2 of 9, so he actually was on an insulin drip, but we were able to get him on subcutaneous insulin and he improved, but he had severe pain, substernal kind of down his chest into his early part of his stomach. His gastric emptying study was normal. I consulted GI to evaluate for endoscopy. I still do not have the note, but I think Dr. Gong has seen him today and put him on some nystatin. His troponin was negative. He is a little anemic, but overall he is doing better. He is tolerating p.o. We will encourage him to follow up with Dr. Gong for outpatient EGD. I will discharge him on Nexium twice a day, Carafate, and a course of nystatin. We have adjusted his insulin as well for improved control. DISCHARGE MEDICATIONS: Lisinopril 5, Celexa 10, Nexium 40 b.i.d., 70/30 at 22 units b.i.d., pioglitazone/metformin 15/500 b.i.d., Carafate 1 g 4 times daily for 6 weeks, and nystatin 4 mL swish and swallow 4 times a day for a week. cc: Roger Velasquez MD [facility] CENTERAhsan
--- NOTE | 2019-08-14 20:13 | GASTROENTEROLOGY CONSULTATION ---
DATE: 08/14/2019 REASON FOR CONSULTATION: Nausea and vomiting. HISTORY OF PRESENT ILLNESS: This is a 58-year-old male with a history of diabetes mellitus. He had an admission diagnosis of DKA with a blood sugar in the 400s. He had also been reporting abdominal discomfort along with nausea and vomiting and reflux and burning in the esophagus. The last episode of vomiting was on Sunday. He has denied constipation or diarrhea. No reported blood in the stool or black stools. He does report some neck pain and left side pain and numbness. He has had 3 shoulder surgeries. At the time of my visit this morning he was eating breakfast and ate almost 100% of his meal. PAST MEDICAL HISTORY: Diabetes mellitus. PAST SURGICAL HISTORY: Shoulder surgeries x3, thumb surgery, knee surgery, tonsils and adenoidectomy. ALLERGIES: No known drug allergies. HOME MEDICATIONS: 1. Celexa 10 mg daily. 2. Nexium 40 mg twice a day. 3. Insulin subcutaneous as directed. 4. Lisinopril 5 mg every night. 5. Nystatin every 6 hours. 6. Pioglitazone/metformin twice a day. 7. Carafate 1 g 3 times a day. SOCIAL HISTORY: No reported tobacco use. Reports some alcohol use and marijuana use. REVIEW OF SYSTEMS: Per history of present illness. PHYSICAL EXAMINATION: Vital Signs: Temperature 98.2 degrees, pulse 66, respirations 18, blood pressure 136/71. General: The patient was awake and alert. No acute distress at the time of my visit this morning. He was eating breakfast and not having any difficulty with nausea or vomiting. Abdomen: Soft, nontender. Positive bowel sounds. Respiratory: Lung sounds essentially clear. Cardiovascular: Regular rate and rhythm. LABORATORY DATA: Hematology: WBC 8.49, hemoglobin 13.5, hematocrit 40.2, MCV 90.3, platelets 295,000. Chemistry: Sodium 138, potassium 3.2, chloride 101, CO2 29, BUN 10, creatinine 0.7, glucose 132. ASSESSMENT AND PLAN: 1. Diabetic ketoacidosis, resolved. Recommend strict glycemic control. 2. Nausea and vomiting has improved. No signs of oral Liliana, but due to his diabetes and recent diabetic ketoacidosis, patient was started on Nystatin. There was an interaction with Diflucan. Continue PPI. Recommend he follow up with us in the office after discharge. I have given him contact information to call and make an appointment. We will continue to follow during his hospital course and further plans to be made according to his progress. Patient was also seen by Dr. Gong. Thank you for this consultation. Dictated by CECILLE Tanner for Marquise Gong MD cc: CECILLE Rey MD
[2019-08-15] MEDS ORDERED: PRINIVIL PO SCH (21:00)
== END 2019-08-14 18:24 | disposition home or self-care (01) | DRG 639 ==
LOC: P.ED 16:50 → ICU 08-11 02:51 → SUATTDRO 08-11 02:51 → ICU 08-11 03:32 → 4N 08-13 10:09
PROVIDERS: ATTEND Internal Medicine